=== PATIENT | male | born 1965 | race Caucasian/White ===

== ENCOUNTER 2016-07-11 09:07 | Emergency (ER) | payer BC ==
[~2016-07-11] VITALS: Ht 175.3 cm; Wt 81.9 kg
[2016-07-11 09:09] VITALS: BP 128/87
[2016-07-11] MEDS ORDERED: SODIUM CHLORIDE 0.9% 1,000ML IVBOLUS ONE (09:30)
[2016-07-11] MEDS ORDERED: KETOROLAC 30 MG/1 ML IVPush ONE (09:30)
[2016-07-11] MEDS ORDERED: METOCLOPRAMIDE 5 MG/ML, 2ML IVPush ONE ×2 (09:30→10:00)
[2016-07-11] MEDS ORDERED: FAMOTIDINE 20 MG/2 ML IVPush ONE (09:30)
[2016-07-11] MEDS ORDERED: SODIUM CHLORIDE FLUSH 10ML SYR IVF ONE (09:30)
[2016-07-11] MEDS ORDERED: FAMOTIDINE 20 MG/2 ML ONE (09:44)
[2016-07-11] MEDS ORDERED: KETOROLAC 30 MG/1 ML ONE (09:44)
[2016-07-11] MEDS ORDERED: METOCLOPRAMIDE 5 MG/ML, 2ML ONE (09:44)
[2016-07-11] MEDS ORDERED: LISI-167 PO (10:02)
[2016-07-11] MEDS ORDERED: CHOLESTEROL MED (10:03)
[2016-07-11 10:22] LABS: HEMOGLOBIN 16.8 g/dL (13.7-18.0)
[2016-07-11 10:29] LABS: ASPARTATE AMINO TRANSFERASE 16 U/L (15-37); BLOOD UREA NITROGEN 14 mg/dL (7-18)
[2016-07-11 11:06] LABS: IS PT STATUS REG ER OR PRE ER? YES
== END 2016-07-11 11:36 | disposition home or self-care (01) ==
LOC: ED 09:36
DX: J20.8 Acute bronchitis due to other specified organisms (principal); I10 Essential (primary) hypertension; E78.00 Pure hypercholesterolemia, unspecified; F17.210 Nicotine dependence, cigarettes, uncomplicated
CPT/HCPCS: 36415; 71020; 80053; 83605; 83690; 84484; 85025; 93005; 96361; 96374; 96375; 99285; J1885; J2765; J7030; S0028